=== PATIENT | male | born 1940 | race Caucasian/White ===

== ENCOUNTER 2019-10-02 09:42 | Emergency (ER) | payer OTHER ==
[~2019-10-02] VITALS: Ht 182.9 cm; Wt 73.0 kg
[2019-10-02] MEDS ORDERED: CALC0.5C11 PO (09:52)
[2019-10-02] MEDS ORDERED: ATOR20TA PO (09:52)
[2019-10-02] MEDS ORDERED: ACET-73 PO (09:52)
[2019-10-02] MEDS ORDERED: ASPI-992 PO (09:52)
[2019-10-02] MEDS ORDERED: ATEN50TA PO (09:52)
[2019-10-02] MEDS ORDERED: ARIP15TA8 PO (09:52)
[2019-10-02] MEDS ORDERED: BUSP10TA35 PO (09:52)
[2019-10-02] MEDS ORDERED: HYDROMORPHONE 1 MG/1 ML DISP.SYRIN ONE ×2 (09:56→11:33)
[2019-10-02] MEDS ORDERED: ONDANSETRON HCL/PF 4 MG/2 ML VIAL ONE (09:56)
[2019-10-02] MEDS ORDERED: HYDROMORPHONE INJ 2 MG/ML DISP.SYRIN IV ONE (10:00)
[2019-10-02] MEDS ORDERED: ONDANSETRON HCL/PF 4 MG/2 ML VIAL IVP ONE (10:00)
--- NOTE | 2019-10-02 10:00 | NUR ---
VELVET WHYTE 860 From [facility] "was walking going to breakfast tripped-Fell now complaining pain on R hip. On room air, breathing evenly and unlabored. connected to the monitor and pulse ox. kept comfortable, will continue to monitor accordingly.
[2019-10-02] MEDS ORDERED: MIRT15TA7 PO (10:07)
[2019-10-02] MEDS ORDERED: TAMSULOSIN PO (10:07)
[2019-10-02] MEDS ORDERED: WARF-58 PO ×2 (10:07)
[2019-10-02] MEDS ORDERED: DOCU100C36 PO (10:07)
[2019-10-02] MEDS ORDERED: GLIP5TAB13 PO (10:07)
[2019-10-02] MEDS ORDERED: LEVO112T2 PO (10:07)
[2019-10-02] MEDS ORDERED: CHOL3000 PO (10:07)
[2019-10-02] MEDS ORDERED: ISOS30TA6 PO (10:07)
[2019-10-02] MEDS ORDERED: CALC500T89 PO (10:07)
[2019-10-02] MEDS ORDERED: iron PO (10:07)
[2019-10-02] MEDS ORDERED: FURO80TA3 PO (10:07)
[2019-10-02] MEDS ORDERED: NITR0.4T SL (10:07)
[2019-10-02] MEDS ORDERED: ASCO-340 PO (10:07)
[2019-10-02] MEDS ORDERED: VILA40TA PO (10:07)
[2019-10-02] MEDS ORDERED: LOPE2TAB23 PO (10:11)
--- NOTE | 2019-10-02 10:18 | NUR ---
katie at bedside for x-ray
[2019-10-02 10:23] LABS: BASOPHILS % (AUTO) 0.3 % (0.0-2.0); EOSINOPHILS % (AUTO) 0.7 % (0.0-6.0); HEMATOCRIT 40 % (39-51); HEMOGLOBIN 13.3 g/dL (13.5-17.5); LYMPHOCYTES # (AUTO) 0.4 /CMM (0.8-4.8); LYMPHOCYTES % (AUTO) 11.3 % (20.0-44.0); MEAN CORPUSCULAR HGB CONC 33 g/dl (31.0-36.0); MEAN CORPUSCULAR VOLUME 89 fL (80-96); MONOCYTES # (AUTO) 0.1 /CMM (0.1-1.30); MONOCYTES % (AUTO) 3.1 % (2.0-12.0); NEUTROPHILS % (AUTO) 84.6 % (43.0-81.0); RED BLOOD CELL COUNT(AUTO) 4.49 MIL/uL (4.5-6.0); WHITE BLOOD COUNT (AUTO) 3.5 K/uL (4.3-11.0)
[2019-10-02 10:30] LABS: CARBON DIOXIDE 29 mmol/L (21-32); CHLORIDE 106 mmol/L (98-107); CREATININE 1.4 mg/dL (0.6-1.3); GLUCOSE 128 mg/dL (74-106); POTASSIUM 4.3 mmol/L (3.5-5.1); SODIUM SERUM 144 mmol/L (136-145); UREA NITROGEN, BLOOD 31 mg/dL (7-18)
[2019-10-02 10:34] LABS: PLATELET COUNT (AUTO) 51 /CMM (150-450)
--- NOTE | 2019-10-02 11:21 | NUR ---
CALLED [facility], AWAITING MD CALL BACK
[2019-10-02] MEDS ORDERED: HYDROMORPHONE 1 MG/1 ML DISP.SYRIN IV ONE (11:30)
--- NOTE | 2019-10-02 13:17 | NUR ---
GOING TO [place] IN [place] [facility] ACCEPTING DR. JAYE Barker CALL [phone] PRN WILL DO ALS TRANSPORT ETA IS 1400 PER [address]
--- NOTE | 2019-10-02 13:29 | NUR ---
report given to Cedric GOMEZ from [facility] for jewel.
[2019-10-02 14:01] VITALS: BP 137/68
--- NOTE | 2019-10-02 14:02 | NUR ---
patient picked up by private ambulance going to [facility]. in no distress.
== END 2019-10-02 14:01 | disposition short-term general hospital (02) ==
LOC: ER 09:44
DX: S72.8X1A Other fracture of right femur, initial encounter for closed fracture (principal); F03.90 Unspecified dementia, unspecified severity, without behavioral disturbance, psychotic disturbance, mood disturbance, and anxiety; I11.0 Hypertensive heart disease with heart failure; I50.9 Heart failure, unspecified; E11.9 Type 2 diabetes mellitus without complications; Z88.3 Allergy status to other anti-infective agents; Z79.01 Long term (current) use of anticoagulants; Z79.899 Other long term (current) drug therapy; Z79.82 Long term (current) use of aspirin; W01.0XXA Fall on same level from slipping, tripping and stumbling without subsequent striking against object, initial encounter; Y93.89 Activity, other specified; Y92.002 Bathroom of unspecified non-institutional (private) residence as the place of occurrence of the external cause; Y99.8 Other external cause status
CPT/HCPCS: 36415; 71045; 73502; 80048; 85025; 85730; 93005; 96374; 96375; 96376; 99285; J1170 ×2; J2405; J7030